=== PATIENT | male | born 1960 | race Caucasian/White ===

== ENCOUNTER 2021-03-18 09:21 | Emergency (ER) | payer OTHER ==
[~2021-03-18] VITALS: Ht 172.7 cm; Wt 90.9 kg
[2021-03-18 09:28] VITALS: Ht 172.7 cm; Wt 90.9 kg
[2021-03-18] MEDS ORDERED: PRAVASTATIN SOD10 MG PO (09:32)
[2021-03-18] MEDS ORDERED: COZAAR100 MG PO (09:32)
[2021-03-18] MEDS ORDERED: NORVASC10 MG PO (09:32)
[2021-03-18] MEDS ORDERED: METOPROLOL TART50 MG PO (09:32)
[2021-03-18] MEDS ORDERED: OMEPRAZOLE20 M1 PO (09:33)
[2021-03-18] MEDS ORDERED: HYDROCODON-ACE1 EAC7 PO (11:23)
[2021-03-18 11:47] VITALS: BP 127/87
== END 2021-03-18 11:47 | disposition home or self-care (01) ==
LOC: D.ER 09:21
DX: S43.004A Unspecified dislocation of right shoulder joint, initial encounter (principal); M79.10 Myalgia, unspecified site; T14.8XXA Other injury of unspecified body region, initial encounter; W01.10XA Fall on same level from slipping, tripping and stumbling with subsequent striking against unspecified object, initial encounter; Y93.9 Activity, unspecified; Y92.9 Unspecified place or not applicable; I10 Essential (primary) hypertension; Z86.73 Personal history of transient ischemic attack (TIA), and cerebral infarction without residual deficits; K21.9 Gastro-esophageal reflux disease without esophagitis